=== PATIENT | male | born 1990 | race American Indian/Alaskan Native ===

== ENCOUNTER 2017-01-04 06:18 | Emergency (ER) | payer OTHER ==
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
[2017-01-04 09:26] VITALS: BP 111/72
== END 2017-01-04 07:21 | disposition home or self-care (01) ==
LOC: ED 06:18
DX: S50.02XA Contusion of left elbow, initial encounter (principal); S00.531A Contusion of lip, initial encounter; V89.2XXA Person injured in unspecified motor-vehicle accident, traffic, initial encounter; Y93.89 Activity, other specified; Y99.8 Other external cause status; Y92.89 Other specified places as the place of occurrence of the external cause